=== PATIENT | female | born 1985 | race Caucasian/White ===

== ENCOUNTER 2018-04-08 11:35 | Emergency (ER) | payer MEDICAID ==
[~2018-04-08] VITALS: Ht 172.7 cm; Wt 72.6 kg
[2018-04-08 11:35] VITALS: BP_SYST 103
[2018-04-08] MEDS ORDERED: LIDOCAINE MPF 2% 5mL VIAL INJ ONE (13:45)
[2018-04-08] MEDS ORDERED: LIDOCAINE 1%, 20 ML MDV 20 ML ONE (13:57)
[2018-04-08] MEDS ORDERED: BACITRACIN 1 GM OINT TP ONE (14:15)
[2018-04-08 14:31] VITALS: BP_SYST 110
== END 2018-04-08 14:30 | disposition home or self-care (01) ==
LOC: SED 11:35
DX: S91.202A Unspecified open wound of left great toe with damage to nail, initial encounter (principal); W20.8XXA Other cause of strike by thrown, projected or falling object, initial encounter; Y93.89 Activity, other specified; Y92.89 Other specified places as the place of occurrence of the external cause; Y99.8 Other external cause status
CPT/HCPCS: 11730; 73630; 99284; J2001 ×2